=== PATIENT | male | born 2005 | race Caucasian/White ===

== ENCOUNTER 2023-04-03 17:58 | Emergency (ER) | payer SELFPAY ==
[~2023-04-03] VITALS: Ht 175.3 cm; Wt 90.0 kg
[2023-04-03 17:59] VITALS: BP 140/78; PULSE 96; RESP 20; TEMP 98.5; O2SAT 100
== END 2023-04-03 18:40 | disposition left against medical advice (07) ==
LOC: ER 17:58
DX: S51.832A Puncture wound without foreign body of left forearm, initial encounter (principal); X58.XXXA Exposure to other specified factors, initial encounter; Y93.89 Activity, other specified; Y92.89 Other specified places as the place of occurrence of the external cause; Y99.8 Other external cause status
CPT/HCPCS: 99281

== ENCOUNTER 2023-04-03 19:21 | Emergency (ER) | payer MEDICAID | END 2023-04-03 20:07 | disposition left against medical advice (07) | LOC: ER 19:21 | DX: Z53.21 Procedure and treatment not carried out due to patient leaving prior to being seen by health care provider (principal) ==